=== PATIENT | male | born 1955 | race Caucasian/White ===

== ENCOUNTER 2016-10-30 08:05 | Day surgery (SDC) | payer OTHER | END 2016-10-30 11:30 | disposition home or self-care (01) | LOC: GIL 08:05 | PROVIDERS: ATTEND Internal Medicine Gastroenterology | DX: Z12.11 Encounter for screening for malignant neoplasm of colon (principal); Z53.9 Procedure and treatment not carried out, unspecified reason ==

== ENCOUNTER 2017-11-12 07:15 | Day surgery (SDC) | END 2017-11-12 13:33 | disposition home or self-care (01) ==